=== PATIENT | female | born 1960 | race Caucasian/White ===

== ENCOUNTER 2024-08-23 13:03 | Emergency (ER) | payer OTHER, MEDICARE, SELFPAY ==
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
[2024-08-23 13:05] VITALS: BP 127/97; PULSE 99; RESP 18; TEMP 36.6; O2SAT 99
--- NOTE | 2024-08-23 13:09 | ECG_ITS ---
Test Date: 2024-08-23 13:11:13 Measurements Intervals [place] Rate: 80 P: 58 IL: 151 QRS: 29 QRSD: 83 T: 8 QT: 377 QTc: 435 Interpretive Statements SINUS RHYTHM LEFT VENTRICULAR HYPERTROPHY WITH ST-T CHANGE CONSIDER INFERIOR INFARCT, AGE INDETERMINATE BORDERLINE ST ABNORMALITY- LATERAL LEADS BASELINE ARTIFACT- I, III, AVL ABNORMAL ECG No previous ECG available for comparison Electronically Signed On 08-23-2024 14:32:20 CDT by Arnol Livingston D.O.
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
[2024-08-23 13:16] LABS: Basophils Absolute Auto 0.04 K/mm3 (0.00-0.10); Basophils Percent Auto 0.6 % (0.0-1.0); Eosinophils Absolute Auto 0.39 K/mm3 (0.02-0.50); Eosinophils Percent Auto 5.4 % (1.0-6.0); Hematocrit 40.9 % (35.0-42.0); Hemoglobin 12.8 g/dL (11.7-13.8); Immature Granulocyte Absolute 0.02 K/mm3 (0.00-0.00); Immature Granulocyte Percent A 0.3 % (0.0-0.0); Lymphocytes Absolute Auto 1.87 K/mm3 (1.10-4.50); Mean Corpuscular HGB Conc 31.3 g/dL (32-36); Mean Corpuscular Hemoglobin 27.8 pg (27.0-31.0); Mean Corpuscular Volume 88.7 fL (78.0-102.0); Mean Platelet Volume 10.2 fl (9.2-11.8); Monocytes Absolute Auto 0.92 K/mm3 (0.10-0.90); Monocytes Percent Auto 12.8 % (2.0-11.0); Neutrophils Absolute Auto 3.96 K/mm3 (1.70-7.20); Neutrophils Percent Auto 54.9 % (50.0-70.0); Platelet Count Result 319 K/mm3 (150-420); Red Blood Count 4.61 M/mm3 (4.20-5.40); Red Cell Distribution Width 14.2 % (11.6-14.4); White Blood Count 7.2 K/mm3 (4.8-10.8)
[2024-08-23 13:26] LABS: INR 0.9; Prothrombin Time 10.1 Seconds (9.50-12.1)
[2024-08-23] MEDS: HYDROcodone/acetaminophen (*CRX) 5-325 MG TABLET 1 TAB PO (14:38)
[2024-08-23 14:44] VITALS: BP 129/66; PULSE 71; RESP 16; TEMP 36.8; O2SAT 99
== END 2024-08-23 14:44 | disposition home or self-care (01) ==
PROVIDERS: Emergency Provider Preventive Medicine Aerospace Medicine; Referring Provider Internal Medicine
DX: S20.211A Contusion of right front wall of thorax, initial encounter (principal); V43.52XA Car driver injured in collision with other type car in traffic accident, initial encounter
CPT/HCPCS: 36415; 71045; 71250; 72125; 72128; 85025; 85610; 93005; 99284; A9270

== ENCOUNTER 2024-09-13 15:02 | Outpatient (CLI) | payer OTHER, MEDICARE, SELFPAY ==
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
--- OUTSIDE RECORDS SUMMARY | 2024-09-13 15:08 | XMS_ITS | Clinical Summary ---
Author Organization [facility] Address [address] [place] [address] Care Team Providers Care Clinical Research Administrator Name Role Phone Unavailable Primary Care Provider Unavailabl e Source Comments [facility],non-owned Affiliates and Associated Physician Practices is amultiple site organization consisting of ambulatory clinics and hospital sitesin [place], [place], [place] and [place]. This disclosure is being madepursuant to the Care Everywhere program and may not contain all information available regarding this patient. Last updated 17.[facility] Allergies Active Allergy Reactions Criticality Noted Date Comments Sulfa Drugs 02/21/2011 Medications * Be aware that medications may not be up to date on this document. Alwaysverify current medications with the patient. metoprolol succinate XL 24hr (TOPROL XL) 100 MG tablet Take 100 mg by mouth once daily. Active rosuvastatin (CRESTOR) 10 MG tablet Take 10 mg by mouth at bedtime. Active DESVENLAFAXINE SR 24hr (PRISTIQ) 100 MG tablet Take 100 mg by mouth once daily. Active varenicline (CHANTIX) 0.5 MG tablet Take 0.5 mg by mouth 2 times daily. 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 ENGINEER Gender Identity Not on file Sexual Orientation Not on file Last Filed Vital Signs Vital Sign Reading Time Taken Comments Blood Pressure 119/60 02/21/2011 8:30 PM DIVISION ENGINEER Pulse 78 02/21/2011 8:30 PM DIVISION ENGINEER Temperature 36.7 C (98.1 F) 02/21/2011 4:00 PM DIVISION ENGINEER Respiratory Rate 14 02/21/2011 8:30 PM DIVISION ENGINEER Oxygen Saturation 96% 02/21/2011 8:30 PM DIVISION ENGINEER Inhaled Oxygen Concentration - - Weight 90.7 kg (200 lb) 02/21/2011 4:00 PM DIVISION ENGINEER Height 162.6 cm (5' 4) 02/21/2011 4:00 PM DIVISION ENGINEER Body Mass Index 34.33 02/21/2011 4:00 PM DIVISION ENGINEER Plan of Treatment Health Maintenance Due Date Last Done Comments BONE DENSITY TESTING 1960 COLOGUARD (AGES 45-75) - COL ON CA SCREENING 1958 COLON MONITORING 1958 COLONOSCOPY - COLON CA SCREENING 1958 CT COLONOGRAPHY - COLON CA SCREENING 1960 Colorectal Cancer Screening 1958 FIT - COLON CA SCREENING 1958 FLEX SIG - COLON CA SCREENING 1958 MAMMOGRAM 1960 HEPATITIS C SCREENING 08/14/1976 DTAP/TDAP/TD VACCINES (1 - Tdap) 1977 PNEUMOCOCCAL VACCINE 50+ (1 of 1 - PCV) 2008 ZOSTER VACCINE (1 of 2) 2008 COVID-19 VACCINE ( - 2023-2 5 season) 2023 DEPRESSION SCREENING 03/02/2024 INFLUENZA VACCINE (#1) 2024 Respiratory Syncytial Virus (RSV) Vaccine Pt: or over 60 yrs (1 - 1-dose 75+ series) 2033 HEPATITIS B VACCINE Aged Out No longe r eligible based on patient's age to complete this topic HIB VACCINE Aged Out No longer eligi ble based on patient's age to complete this topic HPV VACCINE Aged Out No longer eligi ble based on patient's age to complete this topic MENINGOCOCCAL (Group B) VACC INE SHARED DECISION-MAKING Aged Out No longer eligibl e based on patient's age to complete this topic MENINGOCOCCAL GROUPS A/C/Y/W VACCINE Aged Out No longer eligible b ased on patient's age to complete this topic
== END 2024-09-13 15:03 | disposition home or self-care (01) ==
LOC: CHSIMG 15:06
PROVIDERS: PCP Nurse Practitioner Family; Visit Provider Nurse Practitioner Family
DX: R51.9 Headache, unspecified (principal)
CPT/HCPCS: 70450

== ENCOUNTER 2024-10-25 12:12 | Outpatient (CLI) | payer MEDICARE, SELFPAY ==
--- NOTE | ~2024-10-25 | MM_ITS ---
EXAMINATION: screening [facility] BI w mago INDICATION: Asymptomatic, referred for screening mammogram COMPARISON: None available TECHNIQUE: Digital Breast Tomosynthesis CC, MLO views of Both breasts were obtained with computer-aided detection to assist in interpretation of the study. FINDINGS: There are scattered areas of fibroglandular density. There is a focal asymmetry in the upper outer right breast at posterior third. There is an asymmetry seen on the MLO view in the Inferior right breast at anterior third. Elsewhere, there are no mammographic features of malignancy. IMPRESSION: 1. Right breast asymmetries. 2. No evidence of malignancy in the Left breast. RECOMMENDATION: Right breast Diagnostic mammogram with true lateral, appropriate spot compression views and an ultrasound if needed. BI-RADS Category 0: Incomplete: Needs additional imaging evaluation. Reviewed, dictated and finalized at location B. IMPRESSION: 1. Right breast asymmetries. 2. No evidence of malignancy in the Left breast. RECOMMENDATION: Right breast Diagnostic mammogram with true lateral, appropriate spot compressi on views and an ultrasound if needed. BI-RADS Category 0: Incomplete: Needs additional imaging evaluation.
--- OUTSIDE RECORDS SUMMARY | 2024-10-25 12:15 | XMS_ITS | Clinical Summary ---
Author Organization [facility] [employer] Address [address] [place] [address] Care Team Providers Care Asset Recovery Specialist Name Role Phone Unavailable Primary Care Provider Unavailabl e Source Comments [facility],non-owned Affiliates and Associated Physician Practices is amultiple site organization consisting of ambulatory clinics and hospital sitesin [place], [place], [place] and [place]. This disclosure is being madepursuant to the Care Everywhere program and may not contain all information available regarding this patient. Last updated 17.[facility] [employer] Allergies Active Allergy Reactions Criticality Noted Date [...] on file Legal Sex Female 5:50 AM COMMERCIAL LOAN ADMINISTRATOR Gender Identity Not on file Sexual Orientation Not on file Last Filed Vital Signs Vital Sign Reading Time Taken Comments Blood Pressure 119/60 02/21/2011 8:30 PM COMMERCIAL LOAN ADMINISTRATOR Pulse 78 02/21/2011 8:30 PM COMMERCIAL LOAN ADMINISTRATOR Temperature 36.7 C (98.1 F) 02/21/2011 4:00 PM COMMERCIAL LOAN ADMINISTRATOR Respiratory Rate 14 02/21/2011 8:30 PM COMMERCIAL LOAN ADMINISTRATOR Oxygen Saturation 96% 02/21/2011 8:30 PM COMMERCIAL LOAN ADMINISTRATOR Inhaled Oxygen Concentration - - Weight 90.7 kg (200 lb) 02/21/2011 4:00 PM COMMERCIAL LOAN ADMINISTRATOR Height 162.6 cm (5' 4) 02/21/2011 4:00 PM COMMERCIAL LOAN ADMINISTRATOR Body Mass Index 34.33 02/21/2011 4:00 PM COMMERCIAL LOAN ADMINISTRATOR Plan of Treatment Health Maintenance Due Date [...]
== END 2024-10-25 12:13 | disposition home or self-care (01) ==
LOC: CHSIMG 12:13
PROVIDERS: PCP Nurse Practitioner Family; Visit Provider Nurse Practitioner Family
DX: Z12.31 Encounter for screening mammogram for malignant neoplasm of breast (principal); R92.8 Other abnormal and inconclusive findings on diagnostic imaging of breast
CPT/HCPCS: 77063; 77067

== ENCOUNTER 2024-11-22 09:41 | Outpatient (CLI) | payer MEDICARE, SELFPAY ==
--- NOTE | ~2024-11-22 | MMUS_ITS ---
EXAMINATION: MM diagnostic talia RT w mago, US breast RT limited INDICATION: 64-year old female; BI-RADS 0, callback to evaluate Right breast asymmetries COMPARISON: 10/25/2024 TECHNIQUE: Digital breast tomosynthesis True lateral and spot compression CC and MLO views of the RIGHT breast were obtained with computer-aided detection to assist in interpretation of the study. Focused right breast ultrasound was completed. FINDINGS: There are scattered areas of fibroglandular density. The asymmetry of concern in the superior lateral right breast effaces on spot compression views compatible with superimposition of fibroglandular tissue. The asymmetry seen in the inferior at anterior depth partially persists. Ultrasound was performed for further evaluation. RIGHT BREAST ULTRASOUND FINDINGS: Targeted evaluation of the inferior right breast was completed. No suspicious solid or cystic masses seen.. IMPRESSION: Benign mammogram. The asymmetries of concern seen in the right breast represents superimposition of fibroglandular tissue. RECOMMENDATION: Annual screening mammography due in 12 months. BI-RADS 2, BENIGN Reviewed, dictated and finalized at location B. IMPRESSION: Benign mammogram. The asymmetries of concern seen in the right breast represent s superimposition of fibroglandular tissue. RECOMMENDATION: Annual screening mammography due in 12 months. BI-RADS 2, BENIGN
--- OUTSIDE RECORDS SUMMARY | 2024-11-22 10:25 | XMS_ITS | Clinical Summary ---
Author Organization [facility] Address [address] [place] [address] Care Team Providers Care Lining Cleaner Name Role Phone Unavailable Primary Care Provider Unavailabl e Source Comments [facility],non-owned Affiliates and Associated Physician Practices is amultiple site organization consisting of ambulatory clinics and hospital sitesin [place], [place], [place] and [place]. This disclosure is being madepursuant to the Care Everywhere program and may not contain all information available regarding this patient. Last updated 17.[facility] Allergies Active Allergy Reactions Criticality Noted Date [...] on file Legal Sex Female 5:50 AM WOOD DOWEL MACHINE OPERATOR Gender Identity Not on file Sexual Orientation Not on file Last Filed Vital Signs Vital Sign Reading Time Taken Comments Blood Pressure 119/60 02/21/2011 8:30 PM WOOD DOWEL MACHINE OPERATOR Pulse 78 02/21/2011 8:30 PM WOOD DOWEL MACHINE OPERATOR Temperature 36.7 C (98.1 F) 02/21/2011 4:00 PM WOOD DOWEL MACHINE OPERATOR Respiratory Rate 14 02/21/2011 8:30 PM WOOD DOWEL MACHINE OPERATOR Oxygen Saturation 96% 02/21/2011 8:30 PM WOOD DOWEL MACHINE OPERATOR Inhaled Oxygen Concentration - - Weight 90.7 kg (200 lb) 02/21/2011 4:00 PM WOOD DOWEL MACHINE OPERATOR Height 162.6 cm (5' 4) 02/21/2011 4:00 PM WOOD DOWEL MACHINE OPERATOR Body Mass Index 34.33 02/21/2011 4:00 PM WOOD DOWEL MACHINE OPERATOR Plan of Treatment Health Maintenance Due Date [...] 2008 ZOSTER VACCINE (1 of 2) 2008 DEPRESSION SCREENING 03/02/2024 COVID-19 VACCINE (1 - 2023-2 5 season) 2024 INFLUENZA VACCINE (#1) 2024 Respiratory Syncytial Virus [...]
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
== END 2024-11-22 09:42 | disposition home or self-care (01) ==
LOC: CHSIMG 09:42
PROVIDERS: PCP Nurse Practitioner Family; Visit Provider Nurse Practitioner Family
DX: R92.8 Other abnormal and inconclusive findings on diagnostic imaging of breast (principal)
CPT/HCPCS: 76642; 77061; 77065; G0279

== ENCOUNTER 2025-01-11 12:57 | Outpatient (RCR) | payer MEDICARE, SELFPAY ==
--- NOTE | 2025-01-11 13:45 | OPREHPOC ---
Outpatient Therapy Plan of Care This is a Multidisciplinary Plan of Care that may contain components documented by all disciplines (PT, OT, and ST.) PT Problem 1 PT Problem #1 Knowledge Deficit PT Goal 1 Goal / Goal Update independent and compliant with HEP Target Visit 4 PT Problem 2 PT Problem #2 Pain PT Goal 1 Goal / Goal Update patient to report 1/10 pain or less in the neck in the last week patient to report no more than 2 headaches a week Target Visit 8 PT Problem 3 PT Problem #3 Impaired Range of Motion PT Goal 1 Goal / Goal Update improve active cervical extension to 45 degrees improve bilateral active cervical side bending to 35 degrees improve bilateral active cervical rotation to 70 degrees Target Visit 8 PT Problem 4 PT Problem #4 Impaired Functional Mobility PT Goal 1 Goal / Goal Update ndi to display less than 10% functional deficits patient to report ease of looking over L shoulder when driving. Target Visit 8
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
--- NOTE | 2025-02-13 18:03 | OPREHPOC ---
Outpatient Therapy Plan of Care This is a Multidisciplinary Plan of Care that may contain components documented by all disciplines (PT, OT, and ST.) PT Problem 1 PT Problem #1 Knowledge Deficit PT Goal 1 Goal / Goal Update independent and compliant with HEP Target Visit 4 Progress Met PT Problem 2 PT Problem #2 Pain PT Goal 1 Goal / Goal Update patient to report 1/10 pain or less in the neck in the last week patient to report no more than 2 headaches a week Target Visit 8 Progress Met PT Problem 3 PT Problem #3 Impaired Range of Motion PT Goal 1 Goal / Goal Update improve active cervical extension to 45 degrees improve bilateral active cervical side bending to 35 degrees improve bilateral active cervical rotation to 70 degrees Target Visit 8 Progress Met PT Problem 4 PT Problem #4 Impaired Functional Mobility PT Goal 1 Goal / Goal Update ndi to display less than 10% functional deficits patient to report ease of looking over L shoulder when driving. Target Visit 8 Progress Met
--- NOTE | 2025-02-13 18:03 | PTOPDC ---
Assessment and note entered by Sailaja Soliman, PT Evaluation Information Assessment Status Discharge ICD-10 Condition Codes (PT) Cervicalgia M54.2 Onset 08/23/24 Subjective Information Pt reports she has been feeling a lot better since starting PT and denies pain for the last few days . She also denies difficulty with driving or turning her head. Reported Pain Level Pain Score 0: Self Report Pain Score 0: Self Report Assessment PT Clinical Summary Mrs. Rowland attended 8 skilled PT visits addressing neck pain. Since beginning PT she has made excellent progress in her cervical AROM and no longer has difficulty with driving or turning her head. She has met all therapeutic goals and will discharge this date. Plan of Care PT Services Indicated No
== END 2025-02-13 20:00 | disposition home or self-care (01) ==
LOC: CHSPT 12:57
PROVIDERS: Visit Provider Psychiatry & Neurology Neurology
DX: M48.02 Spinal stenosis, cervical region (principal); M54.2 Cervicalgia
CPT/HCPCS: 97014; 97110; 97112; 97150; 97161; G0283